=== PATIENT | female | born 1945 | race American Indian/Alaskan Native ===

== ENCOUNTER 2018-02-09 11:41 | Emergency (ER) | payer MEDICARE ==
[2018-02-09] MEDS ORDERED: NORCO 10/325 PO ONE (12:41)
--- NOTE | 2018-02-09 12:41 | Emergency Department Report ---
ED Upper Extremity Inj HPI - General Chief Complaint: Extremity Injury, Upper Stated Complaint: LEFT WRIST INJURY Time Seen by Provider: 02/09/18 12:37 Source: patient Mode of arrival: Ambulatory Limitations: No Limitations - History of Present Illness MD Complaint: Injury to:: left -: Sudden Other Extremity Injury: Wrist: Left Other Injuries: RLE Handedness: right Place: home Improves With: medication Worsens With: movement of extremity Context: fall Associated Symptoms: denies other symptoms. denies: weakness, numbness, neck pain, suspects foreign body, nausea/vomiting, heard/felt popping sensat - Related Data Previous Rx's Medication Instructions Recorded Last Taken Type HYDROcodone/ACETAMINOPHEN [Hope 1 - 2 each PO Q8H PRN #12 tablet 02/09/18 Unknown Rx 5-325 Tablet] Allergies Allergy/AdvReac Type Severity Reaction Status Date / Time No Known Allergies Allergy Unverified 02/09/18 11:57 ED Review of Systems ROS: Stated complaint: LEFT WRIST INJURY Other details as noted in HPI Comment: All other systems reviewed and negative Constitutional: see HPI. denies: chills Eyes: denies: eye pain ENT: denies: ear pain, throat pain Respiratory: denies: cough, orthopnea Cardiovascular: denies: chest pain, palpitations Endocrine: denies: excessive sweating, flushing Gastrointestinal: denies: abdominal pain, nausea, vomiting Genitourinary: denies: urgency, dysuria Musculoskeletal: denies: back pain, joint swelling, arthralgia, other (L WRIST DEFORMITY AND ABRATION R KNEE) Skin: denies: rash, lesions Neurological: denies: headache, weakness Psychiatric: denies: anxiety, depression Hematological/Lymphatic: denies: easy bleeding ED Past Medical Hx - Past Medical History Hx Hypertension: Yes Hx Diabetes: Yes - Surgical History Past Surgical History?: Yes Additional Surgical History: hysterectomy, lumpectomy left breast - Family History Family history: no significant - Social History Smoking Status: Never Smoker Substance Use Type: None - Medications Home Medications: Home Medications Medication Instructions Recorded Confirmed Last Taken Type HYDROcodone/ACETAMINOPHEN [Hope 1 - 2 each PO Q8H PRN #12 tablet 02/09/18 Unknown Rx 5-325 Tablet] ED Physical Exam - General Limitations: No Limitations General appearance: alert - Head Head exam: Present: normocephalic - Eye Eye exam: Present: PERRL - ENT ENT exam: Present: normal exam, mucous membranes moist - Neck Neck exam: Present: normal inspection - Respiratory Respiratory exam: Present: normal lung sounds bilaterally - Cardiovascular Cardiovascular Exam: Present: regular rate - GI/Abdominal GI/Abdominal exam: Present: soft - Rectal Rectal exam: Present: deferred - Extremities Exam Extremities exam: Present: normal inspection, tenderness, normal capillary refill. Absent: full ROM, pedal edema, joint swelling - Back Exam Back exam: Present: normal inspection, full ROM. Absent: tenderness, CVA tenderness (R) - Neurological Exam Neurological exam: Present: alert, oriented X3, CN II-XII intact, normal gait - Psychiatric Psychiatric exam: Present: normal affect, normal mood - Skin Skin exam: Present: warm, dry, intact ED Course Vital Signs 02/09/18 02/09/18 02/09/18 11:53 12:47 15:15 Temperature 99 F Pulse Rate 99 H 89 Respiratory 18 18 18 Rate Blood Pressure 141/81 Blood Pressure 136/81 [Left] O2 Sat by Pulse 99 99 Oximetry - Reevaluation(s) Reevaluation #1: 02/09/18 19:01 TO ER SP TRIP AND FALL MECHANICAL FALL AND GLF W NO LOC L WRIST DEFORMITY DISTAL RAD FX ABRASION R KNEE MEDICATED FOR PAIN WOUND CARE TDAP HEMATOMA BLOCK AND REDUCTION SPLINTING DC HOME W NEUROVASC INTACT - Nerve Block Consent Obtained: verbal consent Time Out Performed: Yes Amount of anesthesia used: 5 Side: left Nerve Blocks: hematoma block Procedure Successful: Yes Complications: none Patient Tolerated Procedure: well Additional Comments: PT TOLERATED EXTREMELY WELL AND SPLINT APPLIED N/V INTACT BEFORE AND AFTER SPLINT ED Medical Decision Making - Radiology Data Radiology results: report reviewed, image reviewed - Medical Decision Making DISCUSSED WITH DR MACHUCA HEMATOMA BLOCK AND REDUCTION WITH DEC IN ANGULATION N/V INTACT BEFORE AND AFTER SPLINT - Differential Diagnosis FX DISTAL RADIUS Critical care attestation.: If time is entered above; I have spent that time in minutes in the direct care of this critically ill patient, excluding procedure time. ED Disposition Clinical Impression: Distal radius fracture, left Qualifiers: Encounter type: initial encounter Fracture type: open Open fracture type: open type I or II Fracture morphology: unspecified fracture morphology Qualified Code (s): S52.502B - Unspecified fracture of the lower end of left radius, initial encounter for open fracture type I or II Fall Qualifiers: Encounter type: initial encounter Qualified Code(s): W19.XXXA - Unspecified fall, initial encounter Abrasion of knee, right Qualifiers: Encounter type: initial encounter Qualified Code(s): S80.211A - Abrasion, right knee, initial encounter Disposition: TO HOME OR SELFCARE Is pt being admited?: No Does the pt Need Aspirin: No Condition: Stable Instructions: Arm Fracture in Adults (ED) Additional Instructions: ICE REST ELEVATE MEDS ORDERED FOLLOW UP ORTHO JEFF WE REFERRED YOU TO DR HUGHES LET HIM KNOWN SEEN IN ER DIET TOLERATED SPLINT AND SLING INSTRUCTED RETURN FOR PAIN OR BLUE FINGERS OR OTHER SYMPTOMS OF NEUROVASC COMPROMISE Prescriptions: HYDROcodone/ACETAMINOPHEN [Hope 5-325 Tablet] 1 - 2 each PO Q8H PRN #12 tablet PRN Reason: Pain, Moderate (4-6) Referrals: PRIMARY CAREMD [Primary Care Provider] - 3-5 Days ANGEL HUGHES MD [Staff Physician] - 3-5 Days Time of Disposition: 14:59
--- NOTE | 2018-02-09 13:16 | XRay Report ---
LEFT FOREARM, 2 VIEWS: LEFT WRIST, 3 VIEWS: History: Trauma, deformity, pain. Mild osteopenia is suspected. A comminuted, mildly displaced fracture is identified in the distal radial metaphysis. Anterior angulation at the fracture site measures 25 degrees. The ulna and carpal bones are intact. Soft tissue swelling is noted. IMPRESSION: Fracture, distal radius.
[2018-02-09] MEDS ORDERED: MARCAINE 0.5% INFILTRATI ONE (13:27)
[2018-02-09] MEDS ORDERED: BOOSTRIX IM ONE (14:44)
[2018-02-09] MEDS ORDERED: MOTRIN ONE (15:07)
[2018-02-09 15:17] VITALS: BP 136/81
== END 2018-02-09 15:15 | disposition home or self-care (01) ==
LOC: ED 11:41
DX: S52.502B Unspecified fracture of the lower end of left radius, initial encounter for open fracture type I or II (principal); S80.211A Abrasion, right knee, initial encounter; I10 Essential (primary) hypertension; E11.9 Type 2 diabetes mellitus without complications; Z90.710 Acquired absence of both cervix and uterus; W19.XXXA Unspecified fall, initial encounter; Y93.89 Activity, other specified; Y99.8 Other external cause status; Y92.019 Unspecified place in single-family (private) house as the place of occurrence of the external cause
CPT/HCPCS: 90471; 90715

== ENCOUNTER 2018-02-15 05:48 | Day surgery (SDC) | payer MEDICARE ==
[~2018-02-15 05:48] MED LIST: MARCAINE 0.25% INFILTRATI ONE
[2018-02-15] MEDS ORDERED: LACTATED RINGERS 1,000 ML IV SCH (06:00)
[2018-02-15] MEDS ORDERED: MARCAINE 0.25% INFILTRATI ONE ×2 (06:33→10:10)
[2018-02-15] MEDS ORDERED: NEOSPORIN GU IR ONE (06:33)
[2018-02-15] MEDS ORDERED: NACL BACTERIOSTATIC INFILTRATI ONE (06:37)
[2018-02-15] MEDS ORDERED: DILAUDID ONE (07:09)
[2018-02-15] MEDS ORDERED: DIPRIVAN 10 MG/ML IV ONE (07:09)
[2018-02-15] MEDS ORDERED: TORADOL IV PRN (07:18)
[2018-02-15] MEDS ORDERED: TYLENOL PO PRN (07:18)
[2018-02-15] MEDS ORDERED: PERCOCET 5/325 PO PRN (07:18)
[2018-02-15] MEDS ORDERED: ZOFRAN IV PRN (07:18)
[2018-02-15] MEDS ORDERED: DILAUDID IV PRN (07:18)
[2018-02-15] MEDS ORDERED: DEMEROL IV PRN (07:18)
[2018-02-15] MEDS ORDERED: MORPHINE IV PRN (07:18)
[2018-02-15] MEDS ORDERED: NARCAN 0.4 MG/1 ML IV PRN (07:18)
--- NOTE | 2018-02-15 07:18 | Anesthesia Day of Surgery ---
Anesthesia Day of Surgery - Day of Surgery Patient Examined: Yes Patient H&P Reviewed: Yes Patient is NPO: Yes
--- NOTE | 2018-02-15 07:18 | Anesthesia Consultation ---
Anesthesia Consult and Med Hx Date of service: 02/15/18 - Airway Anesthetic Teeth Evaluation: Chipped, Caps, Crowns ROM Head & Neck: Adequate Mental/Hyoid Distance: Adequate Mallampati Class: Class III Intubation Access Assessment: Probably Good - Pulmonary Exam CTA: Yes - Cardiac Exam Cardiac Exam: No Murmur - Pre-Operative Health Status ASA Pre-Surgery Classification: ASA3 Proposed Anesthetic Plan: General - Pre-Anesthesia Comment Pre-Anesthesia Comments: Patient tolerates 6 METs (activity limited by lower back pain). no chest pain or SOB. no cold or flu. no N/V - Pulmonary Hx Smoking: No Hx Sleep Apnea: No ([place] PRE SCREEN HIGH RISK.) - Cardiovascular System Hx Hypertension: Yes (X 10 YRS) Hx Heart Murmur: Yes - Central Nervous System Hx Seizures: No CVA: No Hx Back Pain: Yes (chronic low back pain) - Gastrointestinal Hx Ulcer: No Hx Gastroesophageal Reflux Disease: No - Endocrine Hx Renal Disease: No - Other Systems Hx Alcohol Use: No Hx Substance Use: No Hx Obesity: No
[2018-02-15] MEDS ORDERED: ANCEF/STERILE WATER 2 GM/20 ML IV NR (09:00)
[2018-02-15] MEDS ORDERED: XYLOCAINE MPF 2% ONE (10:04)
[2018-02-15] MEDS ORDERED: ZOFRAN ONE (10:04)
[2018-02-15] MEDS: DILAUDID IV PRN ×3 (10:25→11:00)
--- NOTE | 2018-02-15 11:27 | XRay Report ---
LEFT WRIST, 2 VIEWS History: Left wrist fracture. Findings: The distal radial fracture has been internally fixated with metal plate and screws since 02/09/18. Alignment is near-anatomic. The distal ulna and carpal bones appear intact. Impression: Open reduction and internal fixation of a distal left radial fracture.
[2018-02-15 14:39] VITALS: BP 146/78
--- NOTE | 2018-02-15 17:58 | Procedure Note ---
Date of procedure: 02/15/18 Pre-op diagnosis: displaced left distal radius fracture Post-op diagnosis: same Procedure: Open reduction internal fixation left distal radius Procedure The patient was brought to the OR placed in the OR table in supine position following the induction and intubation by anesthesia the patient's left upper extremity was prepped and draped in the usual sterile manner. A timeout procedure was done to identify the patient and the correct operative site. The arm was exsanguinated followed by inflation of the pneumatic tourniquet to 250 mmHg. A volar incision was made over the distal radius this was taken down sharply through skin and subcutaneous base flexor carpi radialis tendon was seen and identified Using sharp dissection the neurovascular structures were identified and retracted out of the operative field the quadratus tendon was then released from the distal radius and using Hohmann retractors the fracture fragments were identified and were manipulated into a more reduced position.A K wire was used for temporary fixation.Next a Biomet distal radius plate was applied to the volar surface this was temporarily fixed with 2 K wires care was taken to position the plate along the watershed line multiple locked screws were applied to the distal fragment and the plate was then secured proximally using a nonlocked screw followed by 2 additional locking screws in the proximal fragment and AP and lateral x-ray was obtained showing good reduction at the fracture site as well as placement of the hardware. The wound was then copiously irrigated and was closed in a standard routine fashion. Dressings were applied as well as a well-padded volar splint. The patient was extubated and was taken to postanesthesia recovery in stable condition Anesthesia: MAC Surgeon: ANGEL HUGHES (Dulce Bates, 1st assist) Estimated blood loss: minimal Pathology: none Condition: stable Disposition: PACU
--- NOTE | 2018-02-15 20:15 | Post Anesthesia Evaluation ---
- Post Anesthesia Evaluation Patient Participated: Yes Airway Patent: Yes Stable Respiratory Function: Yes Nausea/Vomiting: No Temp > 96.8F: Yes Pain Manageable: Yes Adequeate Hydration: Yes Anesthesia Complications: No Block Receding Appropriately: Not Applicable Patient on Ventilator: No
== END 2018-02-15 15:00 | disposition home or self-care (01) ==
LOC: OR 05:48
PROVIDERS: ATTEND Orthopaedic Surgery
DX: S52.502A Unspecified fracture of the lower end of left radius, initial encounter for closed fracture (principal); E78.00 Pure hypercholesterolemia, unspecified; I10 Essential (primary) hypertension; Z90.710 Acquired absence of both cervix and uterus; Z79.899 Other long term (current) drug therapy; Z98.49 Cataract extraction status, unspecified eye; Z85.3 Personal history of malignant neoplasm of breast; W19.XXXA Unspecified fall, initial encounter; Y93.89 Activity, other specified; Y92.89 Other specified places as the place of occurrence of the external cause; Y99.8 Other external cause status
CPT/HCPCS: 25609; 36415; 73100; 82962; 84132; J0690; J1170; J1885; J2405; J2704; J7120; C1713

== ENCOUNTER 2018-05-13 10:00 | Outpatient (CLI) | payer MEDICARE ==
--- NOTE | 2018-05-13 10:58 | XRay Report ---
LEFT WRIST, 3 VIEWS History: Fracture of lower end of the left radius Findings: Internal fixation of the distal left radial fracture with metal plate and screws has been performed since 02/09/18. Alignment remains anatomic. Calcified callus bridges the fracture site although fracture lines remain visible. No evidence for new fracture. The remainder of the examination is unchanged. Impression: Healing internally fixated distal left radial fracture. No change since the operative films dated 02/15/18.
== END 2018-05-13 10:01 | disposition home or self-care (01) ==
LOC: XRAY 10:00
PROVIDERS: ATTEND Orthopaedic Surgery
DX: S52.502D Unspecified fracture of the lower end of left radius, subsequent encounter for closed fracture with routine healing (principal); E78.00 Pure hypercholesterolemia, unspecified; I10 Essential (primary) hypertension; Z90.710 Acquired absence of both cervix and uterus; Z90.12 Acquired absence of left breast and nipple; X58.XXXD Exposure to other specified factors, subsequent encounter

== ENCOUNTER 2018-07-09 09:33 | Outpatient (CLI) | payer MEDICARE ==
--- NOTE | 2018-07-09 10:52 | XRay Report ---
LEFT WRIST RADIOGRAPHS INDICATION: Fracture. COMPARISON: 05/13/2018. FINDINGS: AP, lateral and oblique left wrist radiographs, 4 images again demonstrate distal radius plate and screw hardware, stabilizing known fracture with some sclerosis/osteopenia noted thereabout. Fracture line now not distinctly visible. Stable remainder exam. CONCLUSION: Continued healing of internally fixated left distal radius fracture, as described. Thank you for the opportunity to participate in this patient's care.
== END 2018-07-09 09:34 | disposition home or self-care (01) ==
LOC: XRAY 09:33
PROVIDERS: ATTEND Orthopaedic Surgery
DX: S52.502D Unspecified fracture of the lower end of left radius, subsequent encounter for closed fracture with routine healing (principal); I10 Essential (primary) hypertension; E78.00 Pure hypercholesterolemia, unspecified; X58.XXXD Exposure to other specified factors, subsequent encounter